=== PATIENT | male | born 1965 | race Caucasian/White ===

== ENCOUNTER 2020-09-20 04:09 | Emergency (ER) | payer MEDICAID ==
[~2020-09-20] VITALS: Ht 180.3 cm; Wt 81.6 kg
[2020-09-20 04:10] VITALS: BP 138/70
--- NOTE | 2020-09-20 04:55 | NUR ---
PT REFUSED TO HAVE BLOOD DRAWN. PT DDNT WANT TO CONT WITH PLAN OF CARE, PT LEFT ER AND ELOPED. dR. SCHAFFER AWARE. CANCELLED ORDERS
== END 2020-09-20 05:00 | disposition left against medical advice (07) ==
LOC: ER 04:09
DX: R10.84 Generalized abdominal pain (principal); F20.9 Schizophrenia, unspecified; F31.9 Bipolar disorder, unspecified; Z88.8 Allergy status to other drugs, medicaments and biological substances